=== PATIENT | male | born 1985 | race Caucasian/White ===

== ENCOUNTER 2017-06-09 15:02 | Emergency (ER) | payer OTHER ==
[~2017-06-09] VITALS: Ht 182.9 cm; Wt 126.1 kg
[~2017-06-09 15:02] MED LIST: FLEXERIL10 MG PO; MOTRIN800 MG PO; NORCO 325 MG-51 TAB PO
--- NOTE | 2017-06-09 15:26 | Emergency Room Report ---
History of Present Illness Time Seen by MD [facility] Presenting Problem in Triage Pt arrived:Walked Presenting Problem:PT C/O RIGHT FLANK PAIN ALONG WITH PAINFUL URINATION Onset of symptoms date/time:/ or onset unknown for:MEDICAL HX UNKNOWN Treatment Prior to Arrival: [employer] Provided by: Sepsis Risk Assessment: Temp: 97.9 B/P: 160/83 MAP: 108 Pulse: 67 Resp: 22 Recent fever? N Clinical Suspician of Infection? N Mental Status: 1 - Regular (Normal Baseline) Sepsis Risk:Low Sepsis Risk Have you (or family members/close friends) recently traveled outside the [place]? N If Yes, where/when: Have you had exposure to infectious disease within the past month? N TB? Other? Specify: Source patient, RN notes reviewed Exam Limitations no limitations Comment acute onset of Rt flank pain and dysuria Timing/Duration this morning Severity moderate Associated Symptoms nausea ALLERGIES Coded Allergies: No Known Allergies (06/09/17) Home Medications Active Scripts HYDROCODONE/ACETAMINOPHEN (Zillah 5-325 Tablet) 1 TAB PO Q6HP PRN pain #10 TAB Prov: 09/16/15 History Medical History General CAD? No Angina: No CA: No Hypertension? No Hyperlipidemia? No CHF? No DVT? No PE? No COPD? No Asthma? No Anemia? No GERD? No Gastric ulcers? No GI Bleed? No Hernia? No Thyroid Problems? No Hypothyroidism? No CVA? No Seizures? No Diabetes? No Renal Insuffiency? No End Stage Renal Disease? No UTI? No Stones? No BPH? No GB Disease: No Nephritic Syndrome? No Asplenia? No Hepatitis? No Sickle Cell Disease? No Arthritis? No Migraines? No Cataracts? No Glaucoma? No MRSA? No HIV? No TB? No Anxiety? No Depression? No Cancer? No More? Yes Additional hx: BACK PAIN Immunization Hx DT/Tetanus > 10 YRS Surgical Hx Previous Surgery?Y ADENOIDS EAR TUBES Social History Smoking Hx Smoker: Former Smoker Tobacco: Yes Type Cigarettes Packs/day < 1 Pack Alcohol Alcohol: Yes Review of Systems All Other Systems Reviewed and Negative Constitutional denies no symptoms reported Eyes denies no symptoms reported, denies see HPI Respiratory no symptoms reported Cardiovascular no symptoms reported Gastrointestinal no symptoms reported Genitourinary pain. Musculoskeletal no symptoms reported Physical Exam Vital Signs Vital Signs Date Time Temp Pulse Resp B/P Pulse O2 O2 Flow FiO2 Ox Delivery Rate 06/09 1653 97.9 73 16 123/75 100 06/09 1634 73 16 123/75 100 06/09 1540 53 14 139/90 95 06/09 1536 14 06/09 1506 97.9 67 22 160/83 99 General Appearance normal appearance, WD/WN, mild distress Ear, Nose, Throat normal ENT inspection Respiratory Status No: respiratory distress, trachea midline, chest symmetrical, non tender chest. Lung Sounds bilateral: normal breath sounds. Cardiovascular regular rate/rhythm, no peripheral edema, no gallop Peripheral Pulses Pulses normal Yes Gastrointestinal soft, no organomegaly, no guarding Back no CVA tenderness, no vertebral tenderness Neurologic alert, normal exam, oriented x 3 Skin intact, normal color, warm/dry Medical Decision Making LABS/Meds/Orders Pt receiving controlled substance in ED? No Results/Orders Laboratory Tests 06/09/17 1513: Sodium 138, Potassium 4.0, Chloride 104, Carbon Dioxide 24, BUN 6 L, Creatinine 1.0, Estimated Creat Clear 192, Estimated GFR (MDRD) 88, Glucose 99, Calcium 9.3 , Total Bilirubin 0.4, AST 24, ALT 58, Alkaline Phosphatase 123 H, Total Protein 8.1, Albumin 4.0, Globulin 4.1 H, Albumin/Globulin Ratio 1.0 L, WBC 7.6, RBC 5.53, Hgb 16.0, Hct 46.6, MCV 84.3, RDW 13.2, Plt Count 371, MPV 7.3 L , Gran % 49.3, Gran # 3.7, Lymphocytes % 43.3, Monocytes % 5.9, Eosinophils % 0.9, Basophils % 0.7, Lymphocytes # 3.3, Monocytes # 0.4, Eosinophils # 0.1, Basophils # 0.1, PUBS MCHC 34.3, MCH 28.9, Urine Color YELLOW, Urine Appearance SL CLOUDY, Urine pH 6.0, Ur Specific [place] 1.020, Urine Protein TRACE H, Urine Ketones NEGATIVE, Urine Blood 3+ H, Urine Nitrate NEGATIVE, Urine Bilirubin NEGATIVE, Urine Urobilinogen 0.2, Ur Leukocyte Esterase NEGATIVE, Urine RBC TNTC, Urine WBC OCC, Urine Bacteria 2+, Urine Glucose NEGATIVE Orders Procedure Date/time Status DIET-NOTHING BY MOUTH 06/[address] ABD/PELVIS REQ 06/09 1520 Complete IV SALINE LOCK 06/09 1520 Active URINALYSIS/COMPLETE 06/09 1520 Complete CBC WITH AUTO DIFF 06/09 1520 Complete CHEM 12 PROFILE 06/09 1520 Complete CULTURE, URINE 06/09 1513 Active XRAY/CT/US XRAY/CT/US XRAY abdomen (4 mm stone at Rt UVJ mild hydr) XR interpretation by discussed w/radiologist CT L-spine Departure Departure Disposition DC Home or Self Care(routine) Clinical Impression Primary Impression: Kidney stone on right side Condition STABLE Referrals Jeannette CHOWDHURY,Herve Ricketts Patient Instructions DI for Kidney Stones Additional Instructions puah fluids this stone shold pass it is at the baldder. You have stone still remaining in the kidney and it is adviseable to see a specialist Prescriptions Current Visit Scripts Naproxen (Naprosyn 500MG Tab) 500 MG PO BID #14 TAB ED Critical Care Critical Care No If Critical Care minutes are documented, the time involved in the performance of seperately reportable procedures was not counted toward critical care time documented. I directly delivered medical care to this critically ill and/or injured patient. Timely evaluation and treatment was necessary to address the significant organ system(s) dysfunction present in this patient. If Critical Care minutes are documented, the time involved in the performance of seperately reportable procedures was not counted toward critical care time documented. I directly delivered medical care to this critically ill and/or injured patient. Timely evaluation and treatment was necessary to address the significant organ system(s) dysfunction present in this patient.
[2017-06-09 15:28] LABS: LYMPH # 3.3 K/mm3 (0.7-4.5); LYMPH % 43.3 % (10-50)
[2017-06-09 15:30] LABS: URINE BILIRUBIN - DIPSTICK NEGATIVE (NEG); URINE BLOOD 3+ (NEG)
--- OUTSIDE RECORDS SUMMARY | 2017-06-09 15:45 | External Medical Summary Rpt ---
Author Author [employer] Jane, [employer] Address Unknown Phone Unavailable
--- OUTSIDE RECORDS SUMMARY | 2017-06-09 15:45 | External Medical Summary Rpt ---
Author Author , BONIFACIO VALDOVINOS Address Unknown Phone [email or web address] Providers Care [place] Name Role Phone ELIDA REED MD, Unavailable Unavailable ELIDA REED MD Purpose Continuity of Care Document - 08-07-2013 through 2016 Problems Code Diagnosis DOS Provider Status 305.1 305.1 08-07-2013 [place] TOBACCO USE [facility] 789.03 789.03 08-07-2013 [facility] LOWER QUADRANT Allergies, Adverse Reactions, Alerts Type Allergy to substance Adverse Reaction to Substance Substance Reaction Severity NO KNOWN ALLERGIES Unknown Unknown Medications Na ND Rx Da Fi Fi Am Da Di Ph RX Ph St me C No te ll ll ou ys ag ar # ys at rm s nt no ma ic us Or Da si cy ia de te s n re d KE 00 09 0 No TO 40 -1 RO 93 4- Lo LA 79 20 ng C 50 13 er 30 1 Ac MG ti /M ve L AL TR 65 09 0 No AM 16 -1 AD 20 4- Lo OL 62 20 ng 71 13 er HC 0 L Ac 50 ti ve MG TA BL ET Vital Signs 08-07-2013 12:30 Name Value Interpretat Reference Comment ion Range BP 107 mm[Hg] Diastolic BP Systolic 158 mm[Hg] Heart 79 /min Rate/Pulse O2% 99 % Respiratory 20 /min Rate Encounters Encounter Start End Date Code Location Performer Type Date Emergency CONNIE REED (ER) 3 12:07 3 12:30 [facility] ELIDA
--- OUTSIDE RECORDS SUMMARY | 2017-06-09 15:45 | External Medical Summary Rpt ---
Author Author [employer] Address Unknown Phone Unavailable Purpose Continuity of Care Document - through 2016
--- OUTSIDE RECORDS SUMMARY | 2017-06-09 15:45 | External Medical Summary Rpt ---
Author Author , BONIFACIO VALDOVINOS Address Unknown Phone [email or web address] Immunization Name Date Rout CVX Reac Dose Comm Prov Is Faci e tion ent ider Refu lity Give sed n Hep 05-1 8 999 Hist H196 No H196 B, 7-20 oric ped/ 01 al adol Info rmat ion - Sour ce Unsp ecif ied Hep 04-1 8 999 Hist H196 No H196 B, 2-20 oric ped/ 01 al adol Info rmat ion - Sour ce Unsp ecif ied MMR 07-2 3 999 Hist H196 No H196 8-19 oric 98 al Info rmat ion - Sour ce Unsp ecif ied
--- OUTSIDE RECORDS SUMMARY | 2017-06-09 15:45 | External Medical Summary Rpt ---
Author Author , BONIFACIO VALDOVINOS Address Unknown Phone [email or web address] Providers Care Kitchen Assistant Name Role Phone ELIDA REED MD, Unavailable Unavailable ELIDA REED MD Purpose Continuity of Care Document - 08-07-2013 through 2016 Problems Code Diagnosis DOS Provider Status 305.1 305.1 08-07-[address] [place] [address] [facility] 789.03 789.03 08-07-2013 [facility] LOWER QUADRANT Allergies, Adverse Reactions, Alerts Type [...] CONNIE REED (ER) 3 12:07 3 12:30 [facility] ELIDA
--- OUTSIDE RECORDS SUMMARY | 2017-06-09 15:45 | External Medical Summary Rpt ---
Author Author , BONIFACIO VALDOVINOS Address Unknown Phone [email or web address] Immunization Name Date Rout CVX Reac Dose [...]
--- NOTE | 2017-06-09 15:46 | RADIOLOGY REPORT PS360 ---
CT ABD PELVIS W/O CONTRAST CLINICAL INDICATION: Right-sided flank pain R/O KIDNEY STONE ORDERING PHYSICIAN: LAURA NARVAEZ MD PATIENT AGE: 31 years COMPARISON: 09/16/2015 TECHNIQUE: Axial images obtained with sagittal and coronal reformats. PROCEDURE: Oral Contrast: None IV Contrast: None . FINDINGS: The lung bases are clear. The liver, gallbladder, spleen, pancreas, and adrenal glands have an unremarkable unenhanced CT appearance. There are punctate bilateral renal calculi. A 4 mm stone is present in the right ureteropelvic junction with mild right hydronephrosis. No intestinal obstruction or free air. No urinary bladder stones. Unremarkable appendix. No pelvic mass or abnormal fluid collection. No acute bony anomalies. IMPRESSION: 1. 4 mm right ureteropelvic junction stone with mild right-sided hydronephrosis. 2. Bilateral nephrolithiasis
[2017-06-09] MEDS ORDERED: NAPROSYN500 M1 PO ×2 (16:08→16:11)
[2017-06-09 16:53] VITALS: BP 123/75
== END 2017-06-09 16:53 | disposition home or self-care (01) ==
LOC: ER 15:02
PROVIDERS: Internal Medicine
DX: N20.2 Calculus of kidney with calculus of ureter (principal)